=== PATIENT | female | born 1975 | race Caucasian/White ===

== ENCOUNTER 2017-10-19 15:04 | Emergency (ER) | payer BC ==
[~2017-10-19] VITALS: Ht 162.6 cm; Wt 60.5 kg
[2017-10-19 15:09] VITALS: BP 138/60; PULSE 75; TEMP 97.9
[2017-10-19] MEDS ORDERED: VENTOLIN0.09 MG IH (15:35)
[2017-10-19] MEDS ORDERED: NASONEX SPRAY17 GM NS (15:35)
[2017-10-19] MEDS ORDERED: SINGULAIR 110 MG/TAB PO (15:35)
[2017-10-19] MEDS ORDERED: ALVESCO160 MCG/Ac IH (15:36)
[2017-10-19] MEDS ORDERED: PREDNISONE20 MG PO (15:48)
== END 2017-10-19 16:08 | disposition home or self-care (01) ==
LOC: COL.ER 15:04
DX: J45.901 Unspecified asthma with (acute) exacerbation (principal)
CPT/HCPCS: J7512